=== PATIENT | female | born 1955 | race Caucasian/White ===

== ENCOUNTER → 2016-10-02 16:57 | Outpatient (CLI) | payer BC ==
[2012-08-29 12:51] VITALS: BMI 31.1
== END | disposition home or self-care (01) ==
LOC: D.MAMMO 08:30
DX: Z12.31 Encounter for screening mammogram for malignant neoplasm of breast (principal)

== ENCOUNTER → 2016-11-06 10:19 | Outpatient (CLI) | payer BC ==
[2012-08-29 12:51] VITALS: BMI 31.1
== END | disposition home or self-care (01) ==
LOC: D.RT 10:19
DX: J44.9 Chronic obstructive pulmonary disease, unspecified (principal)

== ENCOUNTER 2017-07-14 02:44 | Inpatient (IN) | payer BC ==
--- NOTE | ~2017-07-14 | CN ---
PATIENT NAME:ANGELA PHAM MEDICAL RECORD: [id number] : 51 LOCATION:D.MS [id number] ADMIT DATE: 07/15/17 ACCOUNT: [id number] CONSULTING PHYSICIAN: ABBE VALIENTE MD REFERRING PHYSICIAN: FABIOLA ALMONTE MD DATE OF CONSULTATION: 07/14/2017 CONSULT REQUESTING PHYSICIAN: Fabiola Almonte MD REASON FOR CONSULTATION: Acute exacerbation of COPD; pneumonia, left lower lobe. HISTORY OF PRESENT ILLNESS: Ms. Pham is a 61-year-old female who has history of COPD, home oxygen dependent. According to the patient, she is sick for the last few days. She was given doxycycline and IM steroid, but the patient was not getting any better. She had fever for the first 2 days. There were no generalized body aches and pain. She was coughing. The cough was productive with thick yellow color sputum production. There are no chills and no night sweats. REVIEW OF SYSTEMS: Mainly in the history of present illness. PAST MEDICAL HISTORY: 1. COPD, home oxygen dependent. 2. Gastroesophageal reflux disease. 3. History of hepatitis. PAST SURGICAL HISTORY: She had left lower lobe lobectomy in 1969. ALLERGIES: SHE IS ALLERGIC TO SULFA. MEDICATION: Medication on [employer] is reviewed. PERSONAL AND SOCIAL HISTORY: The patient is an ex-smoker. She is nondrinker. FAMILY HISTORY: Significant for cardiovascular disease, cancer, and diabetes. PHYSICAL EXAMINATION: GENERAL: Now, the patient is lying comfortably in bed. She is not in acute distress. VITAL SIGNS: The blood pressure is 123/63, pulse is 99, respirations 24, temperature 97.5, SpO2 97% on 2 liters nasal cannula. HEENT: Conjunctivae pink. Sclerae nonicteric. NECK: Neck is supple. No JVD. CHEST: The chest excursion is minimal on both sides. There is no wheeze and no rales. HEART: Rhythm regular. Normal sound. No murmur. ABDOMEN: Abdomen is soft. Bowel sounds present. No hepatosplenomegaly. RECTAL: Deferred. EXTREMITIES: No cyanosis. No clubbing. No pedal edema. SKIN: The skin is warm. Normal turgor. CENTRAL NERVOUS SYSTEM: The patient is awake and alert. There is no obvious cranial nerve abnormality. The gait was not tested. CHEST RADIOGRAPH: There is infiltrate in the left mid lung. CONSULT REPORT [id number] ANGELA PHAM CBC; the WBC is 9.3, hemoglobin 13.1, hematocrit 37.3, and platelet count 188. ABG; the pH is 7.42, pCO2 is 38.9, pO2 is 82, bicarbonate 25.2. IMPRESSION: 1. Acute exacerbation of COPD. 2. Pneumonia, left lower lobe, most likely community-acquired pneumonia. 3. Dyspnea on exertion. 4. Gastroesophageal reflux disease. 5. Acute cough. 6. Ex-smoker. RECOMMENDATIONS: 1. Continue Zithromax and Rocephin IV. 2. Adjust the dose of methylprednisolone IV. 3. Albuterol/ipratropium nebulizer. 4. Start on Brovana and budesonide nebulizer. 5. Singulair 10 mg a day. 6. Followup labs and chest radiograph. Dr. Almonte, thank you for involving me in the care of Ms. Pham. TRANSINT:[id number] Voice Confirmation ID: [id number] DOCUMENT ID: [id number] ABBE VALIENTE MD at 1340 CC: FABIOLA ALMONTE [id number] DICTATION DATE: 07/14/17 1645 DATA REVIEWER: 07/14/171924 DIS IN 07/19/17 [place] [id number] [place] [address]
[2017-07-14 03:28] LABS: BASOPHILS 0.2 % (0-2); EOSINOPHILS 4.5 % (0-7); HEMATOCRIT 37.3 % (36.0-48.0); HEMOGLOBIN 13.1 g/dL (12-16); IMMATURE GRANULOCYTES 1.1 % (0-5); MCH 31.7 pg (26.0-34.0); MCHC 35.1 g/dL (31.0-37.0); MCV 90.3 fL (80.0-100.0); MEAN PLATELET VOLUME 9.6 fL (7.4-10.4); MONOCYTES 7.7 % (2-11); NEUTROPHILS 63.5 % (40-80); PLATELET COUNT 188 10x3/uL (130-400); RBC 4.13 10x6/uL (4.00-5.40); RDW 12.6 % (11.5-14.5); WBC 9.3 10x3/uL (4.8-10.8)
[2017-07-14 03:37] LABS: APTT 28.4 SECONDS (22.8-39.4); INR 0.99 (0.85-1.17); PROTIME 12.7 SECONDS (11.6-15.0)
[2017-07-14 03:39] LABS: D-DIMER-QUANTITATIVE < 0.27 ug/mLFEU (0.20-0.54)
[2017-07-14 03:45] LABS: ALBUMIN 3.5 g/dL (3.4-5.0); ALKALINE PHOSPHATASE 132 U/L (46-116); ALT (SGPT) 34 U/L (10-68); BILIRUBIN - TOTAL 0.43 mg/dL (0.2-1.3); CALC OSMOLALITY 282 mosm/kg (275-300); CARBON DIOXIDE 25.2 mmol/L (21.0-32.0); CHLORIDE - SERUM 104 mmol/L (98-107); CREATININE - SERUM 1.1 mg/dL (0.6-1.3); GLUCOSE 97 mg/dL (74-106); POTASSIUM - SERUM 3.9 mmol/L (3.5-5.1); PROTEIN - SERUM 6.8 g/dL (6.4-8.2); SODIUM 138 mmol/L (136-145); UREA NITROGEN 33 mg/dL (7-18); eGFR NON AFRICAN AMERICAN 53 mL/min (90-120)
[2017-07-14 03:58] LABS: CKMB 1.8 U/L (0.0-3.6); CREATINE KINASE 52 UL (21-215); PRO BNP 198 pg/mL (0-125); TROPONIN-I < 0.017 ng/mL (0.000-0.060)
[2017-07-14] MEDS ORDERED: SPIRIVA18 MCG INH (05:52)
[2017-07-14] MEDS ORDERED: SINGULAIR10 MG PO (05:53)
[2017-07-14] MEDS ORDERED: PROVENTIL/2.5 MG/3 M INH (05:54)
[2017-07-14] MEDS ORDERED: PERFOROMIS20 MCG/21 INH (05:55)
[2017-07-14] MEDS ORDERED: COMBIVENT RESPIM4 GM INH (05:55)
[2017-07-14] MEDS ORDERED: VIBRAMYCIN 100100 MG PO (05:56)
[2017-07-14 06:07] VITALS: BP 105/62; BMI 33.1
[2017-07-14 07:14] LABS: CREATINE KINASE 54 UL (21-215)
[2017-07-14 07:16] LABS: TROPONIN-I < 0.017 ng/mL (0.000-0.060)
[2017-07-14 08:33] VITALS: BP 139/73
[2017-07-14 12:36] VITALS: BP 123/63
[2017-07-14 12:45] LABS: CREATINE KINASE 52 UL (21-215)
[2017-07-14 12:48] LABS: TROPONIN-I < 0.017 ng/mL (0.000-0.060)
[2017-07-14 17:01] VITALS: BP 138/72
[2017-07-14 17:25] LABS: CKMB 2.1 U/L (0.0-3.6); CREATINE KINASE 58 UL (21-215)
[2017-07-14 17:31] LABS: TROPONIN-I < 0.017 ng/mL (0.000-0.060)
[2017-07-14] MEDS ORDERED: AMBIEN10 MG PO (20:57)
[2017-07-14 21:21] VITALS: BP 125/62
[2017-07-15 01:15] VITALS: BP 129/66
[2017-07-15 04:23] LABS: BASOPHILS 0.1 % (0-2); EOSINOPHILS 0 % (0-7); HEMATOCRIT 35.7 % (36.0-48.0); HEMOGLOBIN 12.5 g/dL (12-16); LYMPHOCYTES 7.3 % (15-50); MCH 31.3 pg (26.0-34.0); MCV 89.5 fL (80.0-100.0); MEAN PLATELET VOLUME 10.2 fL (7.4-10.4); MONOCYTES 0.8 % (2-11); NEUTROPHILS 90.8 % (40-80); PLATELET COUNT 200 10x3/uL (130-400); RBC 3.99 10x6/uL (4.00-5.40); RDW 12.6 % (11.5-14.5); WBC 11.3 10x3/uL (4.8-10.8)
[2017-07-15 04:38] VITALS: BP 128/62
[2017-07-15 04:50] LABS: ALBUMIN 3.6 g/dL (3.4-5.0); ANION GAP 17.1 mmol/L (8-16); BILIRUBIN - TOTAL 0.3 mg/dL (0.2-1.3); CALCIUM 8.3 mg/dL (8.5-10.1); CARBON DIOXIDE 23.8 mmol/L (21.0-32.0); CREATININE - SERUM 1.2 mg/dL (0.6-1.3); POTASSIUM - SERUM 3.9 mmol/L (3.5-5.1); PROTEIN - SERUM 6.8 g/dL (6.4-8.2)
[2017-07-15 08:02] VITALS: BP 139/72
[2017-07-15 11:23] VITALS: BP 116/61
[2017-07-15 12:30] VITALS: BMI 33.0
[2017-07-15 16:06] VITALS: BP 128/68
[2017-07-15 21:14] VITALS: BP 103/57
[2017-07-16 01:38] VITALS: BP 124/71
[2017-07-16 04:23] LABS: BASOPHILS 0 % (0-2); EOSINOPHILS 0 % (0-7); HEMATOCRIT 33.8 % (36.0-48.0); HEMOGLOBIN 11.4 g/dL (12-16); IMMATURE GRANULOCYTES 1.3 % (0-5); LYMPHOCYTES 3.4 % (15-50); MCH 30.8 pg (26.0-34.0); MCHC 33.7 g/dL (31.0-37.0); MCV 91.4 fL (80.0-100.0); MEAN PLATELET VOLUME 10.4 fL (7.4-10.4); MONOCYTES 2.3 % (2-11); PLATELET COUNT 178 10x3/uL (130-400); RDW 12.8 % (11.5-14.5)
[2017-07-16 04:34] LABS: WBC 14.7 10x3/uL (4.8-10.8)
[2017-07-16 04:42] LABS: ALBUMIN 3.2 g/dL (3.4-5.0); ANION GAP 15.9 mmol/L (8-16); BILIRUBIN - TOTAL 0.2 mg/dL (0.2-1.3); CALCIUM 7.7 mg/dL (8.5-10.1); CARBON DIOXIDE 22.8 mmol/L (21.0-32.0); CREATININE - SERUM 1.3 mg/dL (0.6-1.3); POTASSIUM - SERUM 3.7 mmol/L (3.5-5.1); PROTEIN - SERUM 6.1 g/dL (6.4-8.2)
[2017-07-16 05:55] VITALS: BP 115/62
[2017-07-16 09:18] VITALS: BP 121/69
[2017-07-16 13:06] VITALS: BP 126/64
[2017-07-16 16:35] VITALS: BP 126/68
[2017-07-17 01:10] VITALS: BP 128/78
[2017-07-17 04:36] VITALS: BP 130/70
[2017-07-17 05:32] LABS: BASOPHILS 0.1 % (0-2); EOSINOPHILS 0 % (0-7); HEMATOCRIT 33.8 % (36.0-48.0); HEMOGLOBIN 11.3 g/dL (12-16); IMMATURE GRANULOCYTES 2.1 % (0-5); LYMPHOCYTES 3.3 % (15-50); MCH 30.7 pg (26.0-34.0); MCHC 33.4 g/dL (31.0-37.0); MCV 91.8 fL (80.0-100.0); MEAN PLATELET VOLUME 10.3 fL (7.4-10.4); MONOCYTES 3.8 % (2-11); NEUTROPHILS 90.7 % (40-80); PLATELET COUNT 169 10x3/uL (130-400); RBC 3.68 10x6/uL (4.00-5.40); RDW 12.8 % (11.5-14.5); WBC 13.5 10x3/uL (4.8-10.8)
[2017-07-17 06:00] LABS: ALBUMIN 3.2 g/dL (3.4-5.0); ANION GAP 11.9 mmol/L (8-16); BILIRUBIN - TOTAL 0.26 mg/dL (0.2-1.3); CALCIUM 8.3 mg/dL (8.5-10.1); CARBON DIOXIDE 25.2 mmol/L (21.0-32.0); CREATININE - SERUM 1.2 mg/dL (0.6-1.3); POTASSIUM - SERUM 4.1 mmol/L (3.5-5.1)
[2017-07-17 08:45] VITALS: BP 153/68
[2017-07-17 12:37] VITALS: BP 136/68
[2017-07-17 20:00] VITALS: BP 122/66; BP 143/64
[2017-07-18] VITALS: BP 144/81
[2017-07-18 04:00] VITALS: BP 146/72
[2017-07-18 04:44] LABS: BASOPHILS 0 % (0-2); EOSINOPHILS 0 % (0-7); HEMATOCRIT 33.7 % (36.0-48.0); HEMOGLOBIN 11.5 g/dL (12-16); IMMATURE GRANULOCYTES 2.5 % (0-5); LYMPHOCYTES 3.4 % (15-50); MCH 31.2 pg (26.0-34.0); MCHC 34.1 g/dL (31.0-37.0); MCV 91.3 fL (80.0-100.0); MEAN PLATELET VOLUME 9.9 fL (7.4-10.4); MONOCYTES 2.9 % (2-11); NEUTROPHILS 91.2 % (40-80); PLATELET COUNT 141 10x3/uL (130-400); RBC 3.69 10x6/uL (4.00-5.40); RDW 12.7 % (11.5-14.5); WBC 10.5 10x3/uL (4.8-10.8)
[2017-07-18 05:04] LABS: ANION GAP 11.1 mmol/L (8-16); BILIRUBIN - TOTAL 0.26 mg/dL (0.2-1.3); CALCIUM 8.1 mg/dL (8.5-10.1); CARBON DIOXIDE 26.2 mmol/L (21.0-32.0); CREATININE - SERUM 1.2 mg/dL (0.6-1.3); POTASSIUM - SERUM 4.3 mmol/L (3.5-5.1); PROTEIN - SERUM 5.9 g/dL (6.4-8.2)
[2017-07-18 07:58] VITALS: BP 123/62
[2017-07-18 12:23] VITALS: BP 103/58
[2017-07-18 15:55] VITALS: BP 139/77
[2017-07-18 20:00] VITALS: BP 122/62
[2017-07-19] VITALS: BP 142/82
[2017-07-19 04:00] VITALS: BP 136/76
[2017-07-19 05:40] LABS: BASOPHILS 0 % (0-2); EOSINOPHILS 0 % (0-7); HEMATOCRIT 34.3 % (36.0-48.0); HEMOGLOBIN 11.2 g/dL (12-16); IMMATURE GRANULOCYTES 3.6 % (0-5); LYMPHOCYTES 4.6 % (15-50); MCH 30.3 pg (26.0-34.0); MCHC 32.7 g/dL (31.0-37.0); MCV 92.7 fL (80.0-100.0); MEAN PLATELET VOLUME 10.4 fL (7.4-10.4); MONOCYTES 3.6 % (2-11); NEUTROPHILS 88.2 % (40-80); PLATELET COUNT 148 10x3/uL (130-400); RDW 12.6 % (11.5-14.5); WBC 8.4 10x3/uL (4.8-10.8)
[2017-07-19 06:04] LABS: ANION GAP 11.3 mmol/L (8-16); BILIRUBIN - TOTAL 0.3 mg/dL (0.2-1.3); CALCIUM 7.8 mg/dL (8.5-10.1); CARBON DIOXIDE 25.1 mmol/L (21.0-32.0); CREATININE - SERUM 1.2 mg/dL (0.6-1.3); POTASSIUM - SERUM 4.4 mmol/L (3.5-5.1); PROTEIN - SERUM 5.6 g/dL (6.4-8.2)
[2017-07-19 09:13] VITALS: BP 131/65
[2017-07-19] MEDS ORDERED: BENZONATATE200 MG PO (14:40)
[2017-07-19] MEDS ORDERED: MUCINEX600 MG PO (14:40)
[2017-07-19] MEDS ORDERED: FLUTICASONE PRO16 GM NASAL (14:41)
[2017-07-19] MEDS ORDERED: PROTONIX40 MG PO (14:42)
[2017-07-19] MEDS ORDERED: LEVAQUIN500 MG PO (14:42)
[2017-07-19] MEDS ORDERED: PULMICORT0.5 MG/21 UPD (14:44)
[2017-07-19] MEDS ORDERED: PREDNISONE20 MG PO (14:44)
== END 2017-07-19 15:42 | disposition home or self-care (01) | DRG 190 ==
LOC: D.ER 02:44 → D.EDHOLD 04:47 → OBSVTIME 04:47 → D.MS 04:47 → D.SDCHOLD 07-19 13:39 → D.MS 07-19 15:42
PROVIDERS: Emergency Medicine; Family Medicine; Internal Medicine Pulmonary Disease
DX: J44.0 Chronic obstructive pulmonary disease with (acute) lower respiratory infection (principal); J18.1 Lobar pneumonia, unspecified organism; N17.9 Acute kidney failure, unspecified; M35.1 Other overlap syndromes; J44.1 Chronic obstructive pulmonary disease with (acute) exacerbation; Z87.891 Personal history of nicotine dependence; Z99.81 Dependence on supplemental oxygen; K21.9 Gastro-esophageal reflux disease without esophagitis; E11.9 Type 2 diabetes mellitus without complications; D64.9 Anemia, unspecified; F15.982 Other stimulant use, unspecified with stimulant-induced sleep disorder

== ENCOUNTER → 2017-10-25 06:06 | Outpatient (CLI) | payer BC ==
[~2017-10-25 06:06] MED LIST: AMBIEN10 MG PO; BENZONATATE200 MG PO; COMBIVENT RESPIM4 GM INH; FLUTICASONE PRO16 GM NASAL; LEVAQUIN500 MG PO; MUCINEX600 MG PO; PERFOROMIS20 MCG/21 INH; PREDNISONE20 MG PO; PROTONIX40 MG PO; PROVENTIL/2.5 MG/3 M INH; PULMICORT0.5 MG/21 UPD; SINGULAIR10 MG PO; SPIRIVA18 MCG INH; VIBRAMYCIN 100100 MG PO
== END | disposition home or self-care (01) ==
LOC: D.MAMMO 06:06
DX: Z12.31 Encounter for screening mammogram for malignant neoplasm of breast (principal)

== ENCOUNTER → 2017-11-18 08:02 | Outpatient (CLI) | payer BC ==
[2017-11-19 12:16] LABS: IMMUNOGLOBULIN A 5 mg/dL (87-352); IMMUNOGLOBULIN G 621 mg/dL (700-1600)
== END | disposition home or self-care (01) ==
LOC: D.RT 08:00
PROVIDERS: Internal Medicine Pulmonary Disease
DX: J44.9 Chronic obstructive pulmonary disease, unspecified (principal)

== ENCOUNTER → 2018-04-23 08:13 | Outpatient (CLI) | payer BC | END | disposition home or self-care (01) | LOC: D.MRI 08:00 | DX: H53.2 Diplopia (principal) ==

== ENCOUNTER → 2018-08-22 13:03 | Outpatient (CLI) | payer OTHER | END | disposition home or self-care (01) | LOC: D.CT 13:03 | PROVIDERS: ATTEND Obstetrics & Gynecology | DX: R19.00 Intra-abdominal and pelvic swelling, mass and lump, unspecified site (principal) ==

== ENCOUNTER → 2018-08-25 08:40 | Outpatient (CLI) | payer OTHER ==
[~2018-08-25 08:40] MED LIST changes: +BAYER CHEWABLE81 MG PO; +LIPITOR40 MG PO; +PLAVIX75 MG PO
== END | disposition home or self-care (01) ==
LOC: D.RT 08-20 14:00
PROVIDERS: ATTEND Internal Medicine Pulmonary Disease
DX: J44.9 Chronic obstructive pulmonary disease, unspecified (principal)

== ENCOUNTER 2018-08-27 11:00 | Outpatient (CLI) | payer OTHER ==
[~2018-08-27] VITALS: Ht 154.9 cm; Wt 77.3 kg
--- NOTE | ~2018-08-27 | HEMODYNAMI ---
PATIENT:ANGELA PHAM MEDICAL RECORD: [id number] : 51 LOCATION:DShawnCAT ADMISSION DATE: 08/27/18 Generatedon:08/27/201813:15 Patient name: ANGELA PHAM Patient #: [id number] SSN: : 1955 Date of study: 08/27/2018 Page: Of Hemodynamic Procedure Report Patient Data Patient Demographics Procedure consent was obtained First Name: ANGELA Gender: Female Last Name: VERO : 1955 [facility] Initial: J Age: 62 year(s) Patient #: [id number] Race: Unknown Additional ID: [id number] Contact details [address]: [address] [place] [address] State: [place] City: [facility] Zip code: [address] Past Medical History Allergies Allergen Reaction Date Comments Reported Sulfa drugs 08/27/2018 Admission Admission Data Admission Date: 08/27/2018 Admission Time: 11:00 Lab Results Lab Result Date: 08/27/2018 Lab Result Time: 0:00 Biochemistry Name Units Result Min Max BUN mg/dl 38 --(----)-* 7 18 Creatinine mg/dl 1.4 --(----)*- 0.6 1.3 CBC Name Units Result Min Max Hemoglobin g/dl 13.2 -*(----)-- 13.5 17.5 Procedure Procedure Types Cath Procedure Diagnostic Procedure C [facility] w/Coronaries PCI Procedure Coronary Stent Coronary Stent Initial x2 Procedure Description Procedure Date Procedure Date: 08/27/2018 Procedure Start Time: 12:49 Procedure End Time: 13:12 Procedure Staff Name Function Jerzy Mayes MD Performing Physician Baldemar Bell RT Monitor Verona Barney RT Scrub Betsy Philippe RN Nurse Procedure Data Cath Procedure Fluoroscopy Diagnostic fluoroscopy Total fluoroscopy Time: 6.4 time: 6.4 min min Diagnostic fluoroscopy Total fluoroscopy dose: 578 dose: 578 mGy mGy Contrast Material Contrast Material Type Amount (ml) Isovue 370 79 Entry Location Entry Primary Successful Side Size Upsize Upsize Entry Closure Stephens ccessful Closure Location (Fr) 1 (Fr) 2 (Fr) Remarks Device Remarks Radial Right 6 Fr Mechanical artery Short Compression Diagnostic catheters Device Type Used For End Catheter Placement DIAGNOSTIC Sutton 110cm 5 LV Angiography Fr catheter ([id number]) Procedure Complications No complications Procedure Medications Medication Administration Route Dosage Versed I.V. 2 mg Fentanyl I.V. 50 mcg 0.9% NaCl I.V. 100 ml/hr Oxygen etCO2 Nasal cannula 2 l/min Lidocaine 2% added to field 20 Heparin Flush Bag added to field 2 bags (1000units/500ml NS) Radial Cocktail added to field 1 syringe (Verapomil 2mg/Nitro 400mcg/Heparin 1500units) Versed I.V. 1 mg Fentanyl I.V. 25 mcg Heparin Bolus I.V. 5000 units Integrilin (Bolus I.V. 6.8 ml 2mg/ml) Plavix P.O. 600 mg Hemodynamics Rest HGB: 13.2 (g/dl) Heart Rate: 70 (bpm) Pressure Samples Time Site Value (mmHg) Purpose Heart Use Rate(bpm) 12:51 LV 111/5,9 EDP 85 12:51 LV 112/5,10 Snapshot 75 12:52 AO 96/66(79) Pullback 81 12:52 LV 102/11,9 Pullback 81 Gradients Valve Time Site 1 Site 2 Mean SEP/DFP Peak To Heart Use (mmHg) (sec/min) Peak Rate (mmHg) (bpm) Aortic 12:52 LV AO 4 16 6 81 102/11,9 96/66(79) Calculations Valve P-P Mean Valve Index Valve Source Name Gradient Area Flow (cm2) Aortic 6 4 6 4 Snapshots Pre Cath Intra NCS Post Cath Vital Signs Time Heart Resp SPO2 etCO2 NIBP (mmHg) Rhythm Pain Sedation Rate (ipm) (%) (mmHg) Status Level (bpm) 12:43:17 70 13 100 37.8 126/80(110) NSR 0 (11) 10(A) , No pain 12:47:27 74 13 98 20.8 132/88(108) NSR 0 (11) 10(A) , No pain 12:51:47 94 12 100 11.8 112/70(92) NSR 0 (11) 10(A) , No pain 12:55:55 88 12 98 13.3 112/70(82) NSR 0 (11) 9(A) , No pain 13:00:05 85 12 98 39 112/77(91) NSR 0 (11) 9(A) , No pain 13:04:15 90 15 100 33.3 132/74(97) NSR 0 (11) 9(A) , No pain 13:08:33 87 21 100 37.1 123/78(108) NSR 0 (11) 9(A) , No pain 13:12:47 91 17 100 33.4 137/80(106) NSR 0 (11) 10(A) , No pain Medications Time Medication Route Dose Verified Delivered Reason Not es Effectiveness by by 12:46:52 Versed I.V. 2 mg Jerzy Betsy for sedation St Perez Philippe MD RN 12:46:58 Fentanyl I.V. 50 mcg Jerzy Betsy for sedation St Perez Philippe MD, RN 12:47:13 0.9% NaCl I.V. 100 Jerzy Betsy used for ml/hr [place] Jose Martin procedure MD MARIA 12:47:19 Oxygen etCO2 2 l/min Jerzy Betsy used for Nasal [place] Jose Martin procedure cannula MD MARIA 12:47:24 Lidocaine 2% added 20ml Jerzy Bertrand for local to vial [facility] anesthetic field MD CHRISTY 12:47:28 Heparin Flush added 2 bags Jerzy Bertrand used for Bag to [facility] procedure (1000units/500ml field MD CHRISTY NS) 12:47:48 Radial Cocktail added 1 Jerzy Jerzy used for (Verapomil to syringe [facility] procedure 2mg/Nitro field MD CHRISTY 400mcg/Heparin 1500units) 12:51:01 Fentanyl I.V. 25 mcg Jerzy Betsy for sedation [facility] Perez Philippe MD, RN 12:51:52 Versed I.V. 1 mg Jerzy Betsy for sedation St Perez Philippe MD, RN 12:57:52 Heparin Bolus I.V. 5000 Jerzy Betsy for javi ified units [facility] anticoagulation with Dr. MD MARIA [place] 12:58:08 Integrilin I.V. 6.8 ml Jerzy Betsy for was brent (Bolus 2mg/ml) St Perez Philippe antiplatelet 3.2mL MD MARIA therapy 12:58:30 Plavix P.O. 600 mg Jerzy Meyer for GerberPerez Philippe antiplatelet RN therapy Procedure Log Time Note 12:17:42 Signed procedure consent form obtained from patient. 12:17:44 Diagnostic Cath status Elective 12:17:45 Time tracking: Regular hours (M-F 7:00 - 5:00) 12:17:48 Plan of Care:Hemodynamics will remain stable., Cardiac rhythm will remain stable., Comfort level will be maintained., Respiratory function will remain adequate., Patient/ family verbilizes understanding of procedure., Procedure tolerated without complication., Recovers from procedure without complications.. 12:17:59 Patient allergic to Sulfa drugs 12:24:01 Baldemar Bell RT(R) sent for patient. Start room use. 12:30:28 Patient received from Pre/Post Procedure Room to CCL 1 Alert and oriented. Tansferred to table in Supine position. 12:30:30 Warm blankets applied, and janett hugger turned on for patient comfort. 12:30:32 Correct patient and procedure confirmed by team. 12:30:33 ECG and BP/O2 sat monitors applied to patient. 12:42:05 Vital chart was started 12:42:06 Baseline sample Acquired. 12:42:09 Rhythm: sinus rhythm 12:42:10 Full Disclosure recording started 12:42:25 H&P Date Dictated: 08/20/2018 Within 30 days and on chart., H&P Addendum completed by physician on day of procedure. (MUST COMPLETE FOR ALL OUTPATIENTS). 12:42:26 Pre-procedure instructions explained to patient. 12:42:27 Pre-op teaching completed and patient verbalized understanding. 12:42:30 Family in waiting room. 12:42:31 Patient NPO since Midnight. 12:42:33 Is the patient allergic to Iodine/contrast media? No. 12:42:40 Is patient on blood thinner?No 12:42:42 Patient diabetic? No. 12:42:43 ----Pre-sedation anethsthesia assessment.---- 12:42:45 Previous problem with sedation/anesthesia? No ? 12:42:48 Snore? No 12:42:49 Sleep apnea? No 12:42:51 Deviated septum? No 12:42:52 Opens mouth fully? Yes 12:42:54 Sticks out tongue? Yes 12:42:59 Airway obstruction? Yes COPD 12:43:04 Dentures? Yes IN TIGHT 12:43:08 Pre procedure: right dorsailis pedis pulse 2+ Normal; easily identifiable; not easily obliterated 12:43:11 Modified Tulio's test Ulnar < 7 seconds 12:43:14 Patient pain scale 0/10 ?. 12:43:33 IV patent on arrival in left hand with 0.9% NaCl at 10ml/hr. 12:44:01 Lab Result : BUN 38 mg/dl 12:44:01 Lab Result : Hemoglobin 13.2 g/dl 12:44:01 Lab Result : Creatinine 1.4 mg/dl 12:44:05 Lab results completed and on chart. 12:44:08 Right Radial & Right Groin area was prepped with chlora-prep and draped in sterile fashion 12:44:09 Alarms reviewed by R. N. 12:44:09 Sharps counted by scrub and verified by R.N. 12:44:10 Physician arrived 12:44:11 --------ALL STOP TIME OUT------ 12:44:11 Final Timeout: patient, procedure, and site verified with staff and physician. All members of the team are in agreement. 12:44:13 Right Radial & Right Groin site verified by team. 12:44:17 Maximum allowable Isovue 370 dose 300ml. Physician notified. (300ml for normal creatinines. For patients with creatinine of 1.7 or higher multiply weight(kg) x 5 divided by creatinine.) 12:44:21 Fire Safety Assessment: A--An alcohol-based skin anteseptic being used preoperatively., C--Open oxygen or nitrous oxide is being used., D--An ESU, laser, or fiber-optic light is being used. 12:44:25 Physical assessment completed. ASA score P 2 - A patient with mild systemic disease as per Jerzy Mayes MD. 12:44:30 Sedation plan: IV Moderate Sedation Medication:Versed, Fentanyl 12:44:47 Use device set Radial Dx or PCI 12:44:48 ACIST Syringe (13603) opened to sterile field. 12:44:48 Medline Cath Pack ([id number]) opened to sterile field. 12:44:49 Bag Decanter () opened to sterile field. 12:44:49 DIAGNOSTIC WIRE .035 260cm J wire (417230) opened to sterile field. 12:44:49 ACIST Hand Control (94483) opened to sterile field. 12:44:50 ACIST Manifold (51654) opened to sterile field. 12:44:50 Tegaderm 4 x 4 (1626W) opened to sterile field. 12:44:50 MBrace Wrist Support ([id number]) opened to sterile field. 12:44:52 TR BAND Standard ([id number]) opened to sterile field. 12:44:54 SHEATH 6FR Slender (11-0530) opened to sterile field. 12:46:52 Versed 2 mg I.V. was administered by Betsy Philippe RN; for sedation; 12:46:58 Fentanyl 50 mcg I.V. was administered by Betsy Philippe RN; for sedation; 12:47:13 0.9% NaCl 100 ml/hr I.V. was administered by Betsy Philippe RN; used for procedure; 12:47:19 Oxygen 2 l/min etCO2 Nasal cannula was administered by Betsy Philippe RN; used for procedure; 12:47:24 Lidocaine 2% 20ml vial added to field was administered by Jerzy Mayes MD; for local anesthetic; 12:47:28 Heparin Flush Bag (1000units/500ml NS) 2 bags added to field was administered by Jerzy Mayes MD; used for procedure; 12:47:48 Radial Cocktail (Verapomil 2mg/Nitro 400mcg/Heparin 1500units) 1 syringe added to field was administered by Jerzy Mayes MD; used for procedure; 12:48:57 Procedure started. 12:49:51 Local anesthetic to right radial artery with Lidocaine 2% by Jerzy Mayes MD.INITIAL ACCESS ONLY 12:49:58 A 6 Fr Short sheath was inserted into the Right Radial artery 12:50:46 Zero performed for pressure channel P1 12:50:49 Zero performed for pressure channel P1 12:50:51 Zero performed for pressure channel P1 12:50:54 Zero performed for pressure channel P1 12:51:01 Fentanyl 25 mcg I.V. was administered by Betsy Philippe RN; for sedation; 12:51:02 Zero performed for pressure channel P1 12:51:04 Zero performed for pressure channel P1 12:51:08 Zero performed for pressure channel P1 12:51:25 A DIAGNOSTIC Sutton 110cm 5 Fr catheter ([id number]) was advanced over the wire and used for LV Angiography. 12:51:52 Versed 1 mg I.V. was administered by Betsy Philippe RN; for sedation; 12:52:05 LV angiography performed. 12:52:07 LV gram done using CAMPBELL 12:52:12 EF : 55 % 12:52:31 RCA angiography performed. 12:52:49 LCA angiography performed. 12:54:29 Catheter exchanged over wire. 12:55:45 WHISPER 300cm guide wire ([id number]) opened to sterile field. 12:55:45 INFLATOR Merit BasixCompak (FL0752) opened to sterile field. 12:55:46 GUIDE 6FR HS I catheter (LA6HSI) opened to sterile field. 12:56:32 WHISPER wire advanced. 12:56:32 6 Fr HS 1 guide catheter was inserted over the wire 12:57:52 Heparin Bolus 5000 units I.V. was administered by Betsy Philippe RN; for anticoagulation; verified with Dr. Tovar 12:58:08 Integrilin (Bolus 2mg/ml) 6.8 ml I.V. was administered by Betsy Philippe RN; for antiplatelet therapy; wasted 3.2mL 12:58:30 Plavix 600 mg P.O. was administered by Betsy Philippe RN; for antiplatelet therapy; 13:00:40 Place stent Inflation Number: 1 A INTEGRITY OTW 3.0 X 18 stent ([id number]) was prepped and advanced across the Mid RCA. The stent was deployed at 14 GERARDO for 0:23 (min:sec). 13:00:44 Stent catheter was removed intact over wire. 13:00:45 Wire removed. 13:00:48 Guide catheter removed. 13:01:18 GUIDE 6FR EBU 3.5 catheter ([id number]) opened to sterile field. 13:02:56 6 Fr EBU 3.5 guide catheter was inserted over the wire 13:05:20 WHISPER wire advanced. 13:06:21 Procedure type changed to Cath procedure, Diagnostic procedure, LHC, LHC w/Coronaries, PCI procedure, Coronary Stent, Coronary Stent Initial x2 13:09:49 Place stent Inflation Number: 1 A INTEGRITY OTW 3.0 X 15 stent ([id number]) was prepped and advanced across the Prox CX. The stent was deployed at 14 GERARDO for 0:21 (min:sec). 13:10:24 Stent catheter was removed intact over wire. 13:10:25 Wire removed. 13:10:25 Guide catheter removed. 13:10:32 Contrast amount:Isovue 370 79ml. 13:10:39 Sheath removed intact; hemostasis achieved with Mechanical Compression to the Right Radial artery. 13:10:41 Procedure ended.(Physican Out) 13:10:56 Fluoroscopy time 06.40 minutes. 13:11:02 Fluoroscopy dose: 578 mGy 13:11:02 Flurop Dose total: 578 13:11:04 Sharps counted by scrub and verified by R.N. 13:11:06 TR band inflated with 11cc of air. 13:11:08 Insertion/operative site no bleeding no hematoma. 13:11:15 Post right radial artery:stable 13:11:16 Post Procedure Pulses reassessed and unchanged 13:11:23 Post-procedure physical assessment completed. ASA score P 2 - A patient with mild systemic disease as per Jerzy Mayes MD. 13:11:26 Post procedure rhythm: unchanged. 13:11:29 Post procedure instruction explained to patient.Patient verbalizes understanding. 13:11:30 Procedure and supply charges have been captured, reviewed, submitted and are correct. 13:11:57 Procedure Complication : No complications 13:12:00 Vital chart was stopped 13:12:01 See physician's report for complete and final results. 13:12:03 Report given to Pre/Post Procedure Room. 13:12:06 Patient transfered to Pre/Post Procedure Room with Stretcher. 13:12:08 Procedure ended. 13:12:08 Full Disclosure recording stopped 13:12:18 ACC-PCI Only Patient was given prescriptions, or instructed by Jerzy Mayes MD to start/continue the following medications upon discharge: Plavix 13:14:00 End room use (Document Last) Intervention Summary Intervention Notes Time ActionType Lesion and Equipment Action# Pressure Duration Attributes Used 13:00:40 Place stent Mid RCA INTEGRITY 1 14 00:23 OTW 3.0 X 18 stent ([id number]) 13:09:49 Place stent Prox CX INTEGRITY 1 14 00:21 OTW 3.0 X 15 stent ([id number]) Device Usage Item Name Manufacture Quantity Catalog Hospital Part Current Minimal Lot# / Number Charge Number Stock Stock Serial# Code ACIST Acist 1 84985 130209 239863 466086 20 Syringe Medical (93826) Systems Inc Medline Medline 1 [id number] 950662 95389 495552 5 Cath Pack ([id number]) Bag Microtek 1 120584 91343 734026 5 Decanter Medical Inc. () DIAGNOSTIC St Juan J 1 270895 551786 799894 217050 30 WIRE .035 260cm J wire (056878) ACIST Hand Acist 1 39358 761649 683418 976437 5 Control Medical (80294) Systems Inc ACIST Acist 1 48630 740898 556170 998600 5 Manifold Medical (69605) Systems Inc Tegaderm 4 3M 1 1626W 782392 173352 870825 5 x 4 (1626W) MBrace Advanced 1 140-0250-00 129837 59746 022816 5 Wrist Vascular Support Dynamics (480993209) TR BAND Terumo 1 KDD30-LIB 670726 320252 026872 40 Standard (VAS45DJD) SHEATH 6FR Terumo 1 [id number] 134400 424754 345144 5 Slender (80-1060) DIAGNOSTIC Terumo 1 40-5013 958730 622275 704199 5 Sutton 110cm 5 Fr catheter (694129) WHISPER [place] 1 [id number] 069987 889258 647856 5 300cm guide Vascular wire (1720520AU) INFLATOR Merit 1 DY7821 194764 000373 156120 15 Droplet Technology Medical BasixCompak (KE0440) GUIDE 6FR Medtronic 1 LA6HSI 588023 75185 997402 1 HS I catheter (LA6HSI) INTEGRITY Medtronic 1 [id number] 920945 555056 962063 9 [id number] OTW 3.0 X 18 stent ([id number]) GUIDE 6FR Medtronic 1 [id number] 272588 95936 959294 3 EBU 3.5 catheter ([id number]) INTEGRITY Medtronic 1 [id number] 928516 120057 602667 3 [id number] OTW 3.0 X 15 stent ([id number]) Signature Audit [place] Stage Time Signature Unsigned Intra-Procedure 08/27/2018 Baldemar FRAGA(Marco) 1:15:06 PM Signatures Monitor : Baldemar Bell RT Signature : Date : Time : [place] [id number] [facility], [facility]
--- NOTE | ~2018-08-27 | OP ---
PATIENT NAME: ANGELA PHAM MEDICAL RECORD: [id number] :51 LOCATION:D.CAT ADMISSION DATE: SURGEON: LALO WALL MD DATE OF OPERATION: 08/27/2018 PROCEDURE: Left heart catheterization, selective coronary angiography, right radial approach. CATHETERS: Radial sheath and [place] catheter. The procedure was well tolerated. We proceeded with PTCA and stenting of circumflex and right. FINDINGS: Left ventriculography in 30-degree CAMPBELL view: Normal wall motion and normal systolic function. CORONARY ANATOMY: LEFT MAIN: Left main is free of disease. LAD: Free of disease in the diagonal system. CIRCUMFLEX: Circumflex has about 80% stenosis in its proximal one-third, very discrete. RIGHT CORONARY ARTERY: Dominant artery, gives rise to PDA, again 80% stenosis in its midportion. DESCRIPTION OF PROCEDURE: Using indwelling sheath, hockey stick guide catheter provided good guide catheter support followed by 300-cm Whisper wire was placed across the tightly occluded right coronary down this portion of vessel. Stent deployed was a 3.0 x 18-mm Integrity nondrug-eluting stent up to 14 atmospheres. This resulted in excellent resolution of 80% stenosis with no significant residual. Next, the hockey stick guide catheter was exchanged for a 3.5 EBU guiding catheter. The 80% stenosis in circumflex was crossed with the same Whisper wire. A 3.0 x 15-mm Integrity nondrug-eluting stent was placed across the 80% stenosis in circumflex. IMPRESSION: Successful PTCA and stenting of right coronary and circumflex. Both lesions had 80% stenoses. No significant residual. BARTOLOME flow was 3 throughout the procedure. Integrilin was used during the case. The patient was loaded with Plavix in the lab. Sheath was closed with TR band. TRANSINT:[id number] Voice Confirmation ID: [id number] DOCUMENT ID: [id number] LALO WALL MD CC: [id number] DICTATION DATE: 08/27/18 1318 STATOR WINDER: 08/27/18 1453 [place] [id number] [place] [id number]
[~2018-08-27 11:00] MED LIST changes: -BAYER CHEWABLE81 MG PO; -LIPITOR40 MG PO; -PLAVIX75 MG PO
[2018-08-27] MEDS ORDERED: LIPITOR40 MG PO (11:24)
[2018-08-27 11:37] VITALS: BP 132/72; Ht 154.9 cm; Wt 77.3 kg
[2018-08-27 11:51] LABS: BASOPHILS 0.4 % (0-2); EOSINOPHILS 3.9 % (0-7); HEMATOCRIT 38.2 % (36.0-48.0); HEMOGLOBIN 13.2 g/dL (12-16); IMMATURE GRANULOCYTES 0.2 % (0-5); LYMPHOCYTES 22.1 % (15-50); MCH 31.4 pg (26.0-34.0); MCHC 34.6 g/dL (31.0-37.0); MCV 90.7 fL (80.0-100.0); MEAN PLATELET VOLUME 9.7 fL (7.4-10.4); NEUTROPHILS 64.4 % (40-80); RBC 4.21 10x6/uL (4.00-5.40); RDW 13.2 % (11.5-14.5); WBC 9.5 10x3/uL (4.8-10.8)
[2018-08-27 11:56] LABS: PLATELET COUNT 187 10x3/uL (130-400)
[2018-08-27 11:58] LABS: ANION GAP 9.3 mmol/L (8-16); CALCIUM 9.8 mg/dL (8.5-10.1); CARBON DIOXIDE 31.8 mmol/L (21.0-32.0); CREATININE - SERUM 1.4 mg/dL (0.6-1.3); POTASSIUM - SERUM 4.1 mmol/L (3.5-5.1)
[2018-08-27] MEDS ORDERED: PLAVIX75 MG PO (13:22)
[2018-08-27] MEDS ORDERED: BAYER CHEWABLE81 MG PO (13:23)
--- NOTE | 2018-08-27 13:25 | NUR ---
PHYSICIAN AT BEDSIDE TO UPDATE FAMILY.
--- NOTE | 2018-08-27 13:40 | NUR ---
PATIENT AWAKE, VSS ON 2L NC. AT BEDSIDE. PATIENT EATING SANDWICH AND DRINKING WATER. RIGHT TR BAND IN PLACE, NO S/S OF BLEEDING OR HEMATOMA. NO C/O PAIN, NUMBNESS, OR TINGLING.
--- NOTE | 2018-08-27 14:10 | NUR ---
PATIENT RESTING, VSS ON 2L NC. RIGHT TR BAND IN PLACE, NO S/S OF BLEEDING OR HEMATOMA. NO C/O PAIN, NUMBNESS, OR TINGLING. NO N/V.
--- NOTE | 2018-08-27 14:40 | NUR ---
PATIENT RESTING, VSS ON 2L NC. RIGHT TR BAND IN PLACE, NO S/S OF BLEEDING OR HEMATOMA. NO C/O PAIN, NUMBNESS, OR TINGLING.
--- NOTE | 2018-08-27 15:10 | NUR ---
PATIENT INTERMITTENTLY RESTING, VSS ON 1L NC. RIGHT TR BAND IN PLACE, NO S/S OF BLEEDING OR HEMATOMA. NO C/O PAIN, NUMBNESS, OR TINGLING.
--- NOTE | 2018-08-27 15:40 | NUR ---
PATIENT AWAKE, VOIDED PER BEDPAN WITHOUT DIFFICULTY. VSS ON ROOM AIR. RIGHT TR BAND IN PLACE, NO S/S OF BLEEDING OR HEMATOMA. NO C/O PAIN, NUMBNESS, OR TINGLING. NO N/V.
--- NOTE | 2018-08-27 16:10 | NUR ---
BEGIN AIR REMOVAL PROTOCOL FOR TR BAND, 3CC OF AIR REMOVED. NO S/S OF BLEEDING OR HEMATOMA. VSS ON ROOM AIR. NO C/O PAIN, NUMBNESS, OR TINGLING. NO N/V.
--- NOTE | 2018-08-27 16:40 | NUR ---
5CC OF AIR REMOVED FROM TR BAND, NO S/S OF BLEEDING OR HEMATOMA. NO C/O PAIN, NUMBNESS, OR TINGLING. VSS ON ROOM AIR.
--- NOTE | 2018-08-27 17:07 | NUR ---
DR. TIJERINA AT BEDSIDE, SEE ORDERS. IV REMOVED. VSS ON ROOM AIR. RIGHT TR BAND IN PLACE, NO S/S OF BLEEDING OR HEMATOMA.
--- NOTE | 2018-08-27 17:25 | NUR ---
PORTABLE CHEST XRAY PERFORMED AND SPUTUM SAMPLE OBTAINED.
--- NOTE | 2018-08-27 17:40 | NUR ---
REMAINING AIR REMOVED FROM TR BAND WITH NO BLEEDING NOTED. DISCHARGE INSTRUCTIONS GIVEN, VERBALIZED UNDERSTANDING.
--- NOTE | 2018-08-27 17:52 | NUR ---
PREDNISONE PRESCRIPTION CALLED INTO [facility] PER PT REQUEST.
--- NOTE | 2018-08-27 18:00 | NUR ---
TAKEN OUT VIA WHEELCHAIR BY CATH INTERLINE CLERK. LEFT FACILITY WITH FAMILY AND ALL PERSONAL BELONGINGS.
== END 2018-08-27 18:00 | disposition home or self-care (01) ==
LOC: D.CATH 11:00
PROVIDERS: ATTEND Internal Medicine Interventional Cardiology
DX: I25.119 Atherosclerotic heart disease of native coronary artery with unspecified angina pectoris (principal); Z01.812 Encounter for preprocedural laboratory examination

== ENCOUNTER → 2019-02-17 08:25 | Outpatient (CLI) | payer OTHER ==
[2018-08-27 11:37] VITALS: BMI 32.2
[~2019-02-17 08:25] MED LIST changes: +BAYER CHEWABLE81 MG PO; +LIPITOR40 MG PO; +PLAVIX75 MG PO
== END | disposition home or self-care (01) ==
LOC: D.RT 08:25
PROVIDERS: ATTEND Internal Medicine Pulmonary Disease
DX: J44.9 Chronic obstructive pulmonary disease, unspecified (principal)

== ENCOUNTER → 2019-09-29 19:29 | Outpatient (CLI) | payer MEDICARE, OTHER ==
[2018-08-27 11:37] VITALS: BMI 32.2
== END | disposition home or self-care (01) ==
LOC: D.MAMMO 08-20 11:30
PROVIDERS: ATTEND Nurse Practitioner
DX: Z12.31 Encounter for screening mammogram for malignant neoplasm of breast (principal)

== ENCOUNTER → 2020-02-03 13:45 | Outpatient (CLI) | payer MEDICARE, OTHER ==
[2018-08-27 11:37] VITALS: BMI 32.2
== END | disposition home or self-care (01) ==
LOC: D.RT 13:45
PROVIDERS: ATTEND Internal Medicine Pulmonary Disease
DX: J44.9 Chronic obstructive pulmonary disease, unspecified (principal)